=== PATIENT | female | born 1965 | race Caucasian/White ===

== ENCOUNTER 2024-06-04 18:32 | Emergency (ER) | payer OTHER, SELFPAY ==
[2024-06-04 18:40] VITALS: BP 182/104
--- NOTE | 2024-06-04 22:21 | ED.GENMED ---
History of Present Illness
General
Chief Complaint: Back Pain
Source: patient
Exam Limitations: none
Time Seen by Provider: 06/04/24 20:06
History of Present Illness
History of Present Illness:
59-year-old female presents complaining of lower back pain. This is been present for a week. She thinks she may have twisted it. The pain does not radiate down her back. No associated bowel or bladder dysfunction. No fever. She has been using
anti-inflammatories and lidocaine patch with minimal relief. She has a history of osteoporosis. No other complaints at this time
Phy Exam
Physical Exam
Physical Exam:
General: Well-appearing female no acute respiratory distress
HEENT: Normocephalic atraumatic
Heart: Regular rate and rhythm no murmurs
Lungs: Clear no wheeze
Musculoskeletal exam: Mild diffuse tenderness about the lumbar spine. Good range of motion bilateral lower extremities
Neurologic exam: Normal gait negative straight leg raise bilaterally. Good strength sensation to lower extremities bilaterally
Course
Orders/Labs/Results
Orders:
Orders
06/04/24 20:23
CR Lumbar Spine 2 Or 3 Views Urgent
Comment:
Reason For Exam: back pain
Vital Signs
Initial and Last Documented VS:
Initial Vital Signs
Temp Pulse Resp BP Pulse Ox
98.4 F 82 16 182/104 98
06/04/24 18:40 06/04/24 18:40 06/04/24 18:40 06/04/24 18:40 06/04/24 18:40
Last Documented Vital Signs
Temp Pulse Resp BP Pulse Ox
98.4 F 82 16 182/104 98
06/04/24 18:40 06/04/24 18:40 06/04/24 18:40 06/04/24 18:40 06/04/24 18:40
MDM/Problems Addressed
Differential Diagnosis Includes:
Low back pain. Consider musculoskeletal strain versus generative disc disease versus compression fracture. Given her history of osteoporosis we will get x-rays of the lumbar spine
X-rays lumbar spine negative for acute finding. I suspect muscular strain. Recommend anti-inflammatories and muscle relaxers. Stable for discharge
*Critical Care Note
Total Time (30-74mins, 75-104mins- exclusive of procedures): Not Applicable
ED Attending Note
-
Portions of this chart may have been created with voice recognition software.� Occasional wrong word or��sound alike� substitutions may have occurred due to the inherent limitations of voice recognition software.
Discharge Plan
Departure
Patient Disposition: Home (Routine Discharge)
Date of Disposition: 06/04/24
Time of Disposition: 22:23
Patient with high blood pressure during this ER visit?: No
Discharge Problem:
Lumbar strain
Instructions: Low Back Pain (DC)
Prescriptions:
New
methocarbamol 500 mg tablet
500 mg PO TID PRN (Reason: spasm) Qty: 10 0RF
ibuprofen 600 mg tablet
600 mg PO TID PRN (Reason: Pain) Qty: 15 0RF
Referrals:
Escobar Britt MD [Family Provider] -
Activity Restrictions/Additional Instructions:
Continue with warm compresses to the back. You may use muscle relaxer and anti-inflammatory as needed for spasm or pain. Return if worse otherwise follow-up with your doctor
Interventions
Interventions:
*Risk Screen - Suicide Last Done: 06/04/24 18:40
*General Assessment Last Done: 06/04/24 21:20
*Neglect/Abuse Screening Last Done: 06/04/24 18:40
ED- Fall Risk Assessment Last Done: 06/04/24 21:21
*ED COVID-19 Vaccine History Last Done: 06/04/24 21:20
ED-Musculoskeletal Assessment Last Done: 06/04/24 21:21
Discharge Date and Time
Print Language: TAJIK
== END 2024-06-04 22:35 | disposition home or self-care (01) ==
LOC: EMR 18:32
PROVIDERS: EMERGENCY PHYSICIAN Emergency Medicine; FAMILY PHYSICIAN Internal Medicine
DX: S39.012A Strain of muscle, fascia and tendon of lower back, initial encounter (principal); X58.XXXA Exposure to other specified factors, initial encounter; M81.0 Age-related osteoporosis without current pathological fracture
CPT/HCPCS: 99283; 72100